=== PATIENT | female | born 2005 | race Caucasian/White ===

== ENCOUNTER 2025-03-23 20:51 | Emergency (ER) | payer SELFPAY ==
--- NOTE | ~2025-03-23 | CT_ITS ---
EXAMINATION: CT lumbar spine wo/w con, 03/23/2025 21:15 CDT HISTORY: back pain s/p LP COMPARISON: No comparisons available. Technique: Axial images were obtained of the spine per protocol with and without intravenous contrast. One or more of the following dose reduction techniques were used: automated exposure control, adjustment of the mA and/or kV according to patient size, use of iterative reconstruction technique. Unless otherwise stated, incidental findings do not require dedicated follow up imaging Findings: The vertebral heights are intact. No fracture or subluxation. No gross abnormal enhancement The disc heights are intact. Soft tissues unremarkable Impression: No acute abnormality. If symptoms persist or there is concern for infection contrast-enhanced MRI is recommended Reviewed, dictated and finalized at location A. Impression: No acute abnormality. If symptoms persist or there is concern for infection con trast-enhanced MRI is recommended
[2025-03-23 20:54] VITALS: BP 105/70; PULSE 85; RESP 20; TEMP 36.9; O2SAT 99
[2025-03-23 22:47] LABS: Hematocrit 39.5 % (37.0-47.0); Hemoglobin 13.0 g/dL (12.0-15.0); Immature Granulocyte Percent A 0.4 % (0-0.5); Lymphocytes Absolute Auto 1.62 K/mm3 (0.9-3.2); Mean Corpuscular HGB Conc 32.9 g/dl (32-36); Mean Corpuscular Hemoglobin 29.4 pg (26-34); Mean Corpuscular Volume 89.4 fl (80-100); Nucleated Red Blood Cells Absolute Auto 0.000 K/mm3 (0.0-0.012); Nucleated Red Blood Cells Perc 0.0 % (0.0-0.2); Platelet Count Result 207 k/mm3 (150-375); Red Blood Count 4.42 M/mm3 (4.2-5.4); White Blood Count 11.2 K/mm3 (4.5-10.0)
[2025-03-23] MEDS: METOCLOPRAMIDE HCL INJ 10 MG/2 ML VIAL IV PUSH (22:50)
[2025-03-23] MEDS: SODIUM CHLORIDE 0.9% IV 1,000 ML 999 ML IV CONT (22:50)
[2025-03-23] MEDS: MORPHINE SULFATE (*CRX) 2 MG/ML INJ IV PUSH (22:50)
[2025-03-23 23:01] LABS: Alanine Aminotransferase 14 U/L (6-35); Albumin Level 4.1 g/dL (3.5-5.1); Alkaline Phosphatase 77 U/L (38-126); Anion Gap 6 mmol/L (4-12); Aspartate Amino Transferase 17 U/L (14-36); Bilirubin,Total 0.2 mg/dL (0.2-1.3); Blood Urea Nitrogen 13 mg/dL (7-17); CRP < 0.5 mg/dL (<1.0); Calcium 8.9 mg/dL (8.4-10.2); Carbon Dioxide 26 mmol/L (22-30); Chloride 107 mmol/L (98-107); Estimated CRCL calculation 87 ml/min; Estimated Glomerular Filt Rate > 60; Glucose 120 mg/dL (65-110); Potassium 4.1 mmol/L (3.4-5.0); Sodium 139 mmol/L (137-145); Total Protein 6.6 g/dL (6.3-8.2)
[2025-03-23 23:05] LABS: SPREG INTERNAL CONTROL Positive; Serum Qual hCG Negative
--- NOTE | 2025-03-23 23:48 | ED_ITS ---
HPI - Back Pain/Injury General Chief Complaint: Back Pain/Injury Stated Complaint: lumbar punture t-1, Nausea, back pain Time Seen by Provider: 03/23/25 22:25 History of Present Illness HPI Narrative: Patient is a 19-year-old female who presents emergency department this evening complaining of lumbar back pain and headache. She was seen at [facility] yesterday and had an LP attempted for evaluation for chronic headaches for the past 3 weeks and concern for intracranial hypertension. Mother who is present with the patient at bedside states that the LP was attempted multiple times was unsuccessful. There were informed that the patient has a narrow spinal cord and they could not evaluate her intracranial pressure. Patient states that since then she has been having worsening headaches and lower back pain. Has tried [id number] ibuprofen, Reglan and Benadryl without any improvement of her symptoms. Denies any focal weakness, numbness and tingling, denies any bowel or bladder incontinence. Related Data Allergies Allergy/AdvReac Type Severity Reaction Status Date / Time No Known Allergies Allergy Verified 03/23/25 20:57 Review of Systems 2 Review of Systems: All systems are reviewed and are negative unless stated otherwise in the HPI. Exam 2 Narrative: General: Alert, awake, afebrile, in no acute distress. HEENT: PERRL, no rhinorrhea, no post nasal drip, oropharynx clear. Neck: Trachea midline, no JVD, no lymphadenopathy. Cardiovascular: Regular rate and rhythm, no murmurs, rubs or gallops, no peripheral edema. Respiratory: Clear to auscultation bilaterally, no tachypnea, no wheezing, no rhonchi, no rubs, no respiratory distress. Abdomen: Soft, nontender, nondistended, no rebound, no guarding, no peritoneal signs. Musculoskeletal: No joint swelling or deformity, normal muscle tone. Skin: No rashes or petechia, no signs of infection. Psychiatric: Alert and oriented, normal behavior and judgment for situation. Neurological: Alert and oriented to person, place, and time. Follows all commands. No focal deficits, speech is clear and fluent. Course Vital Signs Vital signs: Vital Signs Temperature 98.4 F 03/23/25 20:54 Pulse Rate 85 03/23/25 20:54 Respiratory Rate 20 03/23/25 20:54 Blood Pressure 105/70 03/23/25 20:54 Pulse Oximetry 99 09/06/25 20:54 Oxygen Delivery Room Air 03/23/25 20:54 Temperature 98.4 F 03/23/25 20:54 Pulse Rate 79 03/24/25 00:13 Respiratory Rate 16 03/24/25 00:13 Blood Pressure 116/62 03/24/25 00:13 Pulse Oximetry 100 03/24/25 00:13 Oxygen Delivery Room Air 03/23/25 20:54 MDM - Back Pain/Injury MDM Narrative Medical decision making narrative: The patient was evaluated by myself in the emergency department. History is obtained from patient who is an independent historian and physical exam was performed. External medical records were reviewed at this time. IV was established and pertinent tests were ordered. Patient was administered 1 L IV fluid bolus with normal saline, 10 mg IV Reglan, 25 mg of IV Benadryl and 2 mg of IV morphine. Laboratory results obtained revealing no acute process. Imaging studies obtained included CT lumbar spine with and without contrast which was independently interpreted by me revealing no acute process, which is pending final radiology interpretation. Differential diagnosis considerations include a epidural hematoma, epidural abscess, spinal headache. Comorbidities impacting this visit include recent LP. I have evaluated and discussed social determinants of health with the patient that could potentially impact subsequent diagnosis and treatment plans. On repeat assessment of the patient, reevaluation revealed that the patient is doing well and is in no acute distress. Patient symptoms have improved since she arrived to our emergency department. Patient states that her headache has significantly improved. Repeat vital signs were all reviewed and noted to be stable. Differential diagnosis and treatment plan were discussed with the patient at bedside. Patient agrees with discussion and after shared medical decision making agrees with discharge. All questions were answered to the patient's satisfaction. Patient will follow up with her PCP in 3-5 days. Patient was provided with strict return precautions and instructed to return to the emergency department if any new or worsening symptoms develop. The patient was discharged in stable condition. Lab Data 03/23/25 22:42 03/23/25 22:42 Labs: Lab Results 03/23/25 Range/Units 22:42 WBC 11.2 H (4.5-10.0) K/mm3 RBC 4.42 (4.2-5.4) M/mm3 Hgb 13.0 (12.0-15.0) g/dL Hct 39.5 (37.0-47.0) % MCV 89.4 (80-100) fl MCH 29.4 (26-34) pg MCHC 32.9 (32-36) g/dl RDW 12.5 (11.5-14.5) % Plt Count 207 (150-375) k/mm3 MPV 10.1 (7.4-10.4) fl Immature Gran % (Auto) 0.4 (0-0.5) % Neut % (Auto) 79.3 H (45.5-73.1) % Lymph % (Auto) 14.4 L (18.3-44.2) % [place] % (Auto) 5.3 (2.6-8.5) % Eos % (Auto) 0.2 (0-4.4) % Baso % (Auto) 0.4 (0.2-1.2) % Lymph # (Auto) 1.62 (0.9-3.2) K/mm3 [place] # (Auto) 0.6 (0.1-0.6) K/mm3 Eos # (Auto) 0.0 (0-0.3) K/mm3 Baso # (Auto) 0.1 (0.0-0.1) K/mm3 Abs Immat Gran (auto) 0.04 H (0.00-0.031) K/mm3 Absolute Neuts (auto) 8.9 H (1.3-6.7) K/mm3 Absolute Nucleated RBC 0.000 (0.0-0.012) K/mm3 Nucleated RBC % 0.0 (0.0-0.2) % ESR 8 (0-20) mm/hr Sodium 139 (137-145) mmol/L Potassium 4.1 (3.4-5.0) mmol/L Chloride 107 (98-107) mmol/L Carbon Dioxide 26 (22-30) mmol/L Anion Gap 6 (4-12) mmol/L BUN 13 (7-17) mg/dL Creatinine 0.76 (0.7-1.0) mg/dL Estim Creat Clear Calc 87 ml/min Estimated GFR > 60 (59 - ) Glucose 120 H (65-110) mg/dL Calcium 8.9 (8.4-10.2) mg/dL Total Bilirubin 0.2 (0.2-1.3) mg/dL AST 17 (14-36) U/L ALT 14 (6-35) U/L Alkaline Phosphatase 77 (38-126) U/L C-Reactive Protein < 0.5 (<1.0) mg/dL Total Protein 6.6 (6.3-8.2) g/dL Albumin 4.1 (3.5-5.1) g/dL Serum HCG, Qual Negative Discharge Plan Discharge Clinical Impression: Spinal headache Patient Disposition: Home Condition: Improved Instructions: Antibiotic Form, Acute Headache (ED) Additional Instructions: Please follow-up with your family doctor within the next 3-5 days. Return to emergency department if any new or worsening symptoms develop. Patient Language: Algerian Follow-up/Referrals: Tanika,MD Ace [Primary Care Provider, Unknown] - 3 Days Time of Disposition: 00:31
[2025-03-24 00:13] VITALS: BP 116/62; PULSE 79; RESP 16; O2SAT 100
[2025-03-24 00:45] VITALS: BP 106/65; PULSE 72; RESP 17; O2SAT 99
== END 2025-03-24 00:50 | disposition home or self-care (01) ==
PROVIDERS: Emergency Provider Emergency Medicine; PCP Internal Medicine
DX: G97.1 Other reaction to spinal and lumbar puncture (principal)
CPT/HCPCS: 36415; 72133; 80053; 84703; 85025; 85652; 86140; 96361; 96374; 96375; 99284; J1200; J2270; J2765; J7030; Q9967